=== PATIENT | female | born 1975 | race Caucasian/White ===

== ENCOUNTER 2018-11-03 01:21 | Emergency (ER) | payer MEDICAID, SELFPAY ==
[2018-11-03 01:22] VITALS: BP 140/96; PULSE 74; RESP 15; TEMP 36.4; O2SAT 96; BMI 50.8
--- NOTE | 2018-11-03 01:49 | ED.VIS.GEN ---
History of Present Illness Chief Complaint: Constipation Narrative: Patient is a 43-year-old female who presents with constipation. She has been constipated for about 2 to 3 days. She has been straining to have a bowel movement. She noticed some bright red blood when she was straining per rectum. She complains of abdominal cramping. No nausea or vomiting. Prior abdominal surgical history includes appendectomy and oophorectomy. She is a diabetic. Her mother had her try dicyclomine. She has not tried any laxatives or stool softeners. Past Medical History - Allergies and Home Meds Allergies/Adverse Reactions: Allergies aspirin Allergy (Verified 11/03/18 01:24) Hives Prior records reviewed: No Past Medical History: - - Diabetes, asthma, history of DVT Surgical History: appendectomy Smoking Status: Current every day smoker Review of Systems All systems negative except as indicated General: Denies: Fever Cardiovascular: Denies: Chest pain Respiratory: Denies: Dyspnea Gastrointestinal: Reports: Constipation. Denies: Abdominal pain, Nausea, Vomiting, Diarrhea Physical Exam Vital Signs/Narrative: Vital Signs Temp Pulse Resp BP Pulse Ox 11/03/18 01:22 97.5 F L 74 15 140/96 H 96 Inital Vital Signs reviewed: Yes General: Well nourished, Well developed Head: Normocephalic Eyes: EOMI ENT: Moist mucous membranes Neck: Supple Cardiovascular: Regular rate, Regular rhythm Respiratory: No distress, CTA bilaterally Abdomen: Soft, Nontender, Nondistended, Normal bowel sounds Rectal: Nontender, - - No fecal impaction noted Skin: Normal color Neurological: Alert Psychological: Normal affect Diagnostic/Tx/Re-eval Impressions KUB X-Ray 11/03/18 02:00 IMPRESSION: Negative x-ray examination of the abdomen and pelvis. Electronically Signed: Anthony Rayen, at 2:22 EDT Tel , Service support , 11/03/18 02:00 KUB [Abdomen Single View] [RAD] Stat - Medical Decision Making X-ray as above unremarkable. Patient was prescribed magnesium citrate for constipation. Prior to discharge she let me know that her doctor in [place] called her and said it looks like she may have cancer. She has a history of cervical cancer. Unfortunately the history pertaining her most recent results is very unclear as the patient is a poor informant. She states some tests were done and then they might show some type of cancer. She is unable to tell me what tests were done what type of physician called her or what type of cancer they were concerned about. I explained there is little I can do with this extremely limited information. I advised that she contact the physician who called her to get some more information about what tests were abnormal and what type of specialist she needs to see. I did refer her to establish her primary care here however she is new to the area. ED Disposition - Plan for ED Patient: Disposition: Home or Assisted Living Diagnosis: Constipation Instructions: CONSTIPATION (Adult) Prescriptions: Magnesium Citrate [Citrate Of Magnesia] 300 ml PO X1 #300 ml Prescription Printed Referrals: Faustino Cullen DO [NON CLINICAL AFFILIATE] -
--- NOTE | 2018-11-03 02:00 | RAD_ITS ---
STUDY: X-RAY - ABDOMEN/PELVIS REASON FOR EXAM: Female, 43 years old. Constipation TECHNIQUE: AP KUB COMPARISON: None. FINDINGS: There is an unremarkable bowel gas pattern. There is no demonstrated free abdominal air. The visualized liver, spleen and kidneys are grossly normal in size and morphology. Mild retained stool seen in the ascending colon and sigmoid colon. Normal soft tissue structures. Normal visualized osseous structures. RAD/Abdomen Single View IMPRESSION: Negative x-ray examination of the abdomen and pelvis. Electronically Signed: Anthony Richey, at 2:22 EDT Tel , Service support ,
[2018-11-03 02:46] VITALS: BP 134/90; PULSE 66; RESP 18; O2SAT 99
== END 2018-11-03 02:46 | disposition home or self-care (01) ==
PROVIDERS: Emergency Provider Emergency Medicine
DX: K59.00 Constipation, unspecified (principal); E11.9 Type 2 diabetes mellitus without complications; J45.909 Unspecified asthma, uncomplicated; Z86.718 Personal history of other venous thrombosis and embolism; F17.200 Nicotine dependence, unspecified, uncomplicated
CPT/HCPCS: 74018; 99282

== ENCOUNTER 2019-03-03 23:17 | Emergency (ER) | payer MEDICAID, SELFPAY ==
[2019-03-03 23:18] VITALS: BP 159/85; PULSE 80; RESP 16; TEMP 37.1; O2SAT 98; BMI 47.2
[2019-03-04 00:24] LABS: Mucous, Urine 0 SEEN /hpf (<or=2+); Red Blood Cells-Urine 0 SEEN /hpf (0-5)
[2019-03-04 00:26] LABS: Color, Urine Yellow (Yellow); Glucose, Dipstick 250 mg/dl (Normal); Ketone-Dipstick 5 mg/dl (Negative); Leukocyte Esterase-Dipstick 100 /ul (Negative); Nitrite-Dipstick Positive (Negative); Occult Blood-Urine 10 /ul (Negative); Protein-Dipstick 30 mg/dl (Negative); Urine Bilirubin Dipstick Negative (Negative); Urine Clarity Sl. Cloudy (Clear); Urine Urobilinogen Normal (Normal)
[2019-03-04 00:29] LABS: Internal QC Validated? YES +Cl - CLEAR BKGD; Pregnancy, Urine Negative Negative
[2019-03-04] MEDS: Azithromycin 250 MG Tablet 1000 MG PO (00:37)
[2019-03-04] MEDS: Ceftriaxone 500 MG Vial 250 MG IM (00:37)
[2019-03-04 00:45] LABS: Bacteria 2+ /hpf (None Seen); Squamous Epithelial Cells - UA 5-10 SEEN /hpf (5-10); White Blood Cells 10-25 SEEN /hpf (0-5)
--- NOTE | 2019-03-04 01:04 | ED.DCSUM_ITS ---
History of Present Illness Chief Complaint: Female C/O Informant: Patient Narrative: Patient is a 43-year-old female presenting for concern for sexually transmitted infection. Patient states another woman slept with her and then her immediately afterward slept with her. She is concerned because she heard that this woman has herpes as well as chlamydia. Patient denies any abnormal vaginal discharge or painful lesions in her vagina/perineum. Her last menstrual period was 3 weeks ago. Patient states she recently had a miscarriage 3 weeks ago. She is following up with her [employer] and is scheduled to have an ultrasound next week. Patient is not concerned for this. Patient denies any personal history of STDs. She states she would like to be treated. She denies any other complaints at this time. Past Medical History - Allergies and Home Meds Allergies/Adverse Reactions: Allergies aspirin Allergy (Verified 03/03/19 23:25) Hives Primary Care Physician: Margaret Harkins CNM [Primary Care Provider] - Past Medical History: None Surgical History: appendectomy Smoking Status: Current some day smoker Review of Systems General: Denies: Chills, Fever, Sweats Eyes: Denies: Visual changes - bilaterally, Diplopia ENT: Denies: Rhinorrhea, Sore throat Cardiovascular: Denies: Chest pain, Palpitations Respiratory: Denies: Dyspnea, Cough, Dyspnea on exertion Gastrointestinal: Denies: Abdominal pain, Nausea, Vomiting, Diarrhea, Melena, Hematochezia Genitourinary: Denies: Dysuria, Hematuria, Frequency Musculoskeletal: Denies: Back pain, Extremity Pain Skin: Denies: Rash, Wounds Neurological: Denies: Headache, Weakness, Numbness Physical Exam Vital Signs/Narrative: Vital Signs Temp Pulse Resp BP Pulse Ox 03/03/19 23:18 98.7 F 80 16 159/85 H 98 Inital Vital Signs reviewed: Yes General: Well nourished, Well developed, Obese, No Acute Distress Head: Normocephalic, Atraumatic Eyes: Perrl, EOMI ENT: Moist mucous membranes, No rhinorrhea Neck: Supple, Nontender Cardiovascular: Regular rate, Regular rhythm, No murmurs Respiratory: No distress, CTA bilaterally, Chest nontender Abdomen: Soft, Nontender, Nondistended, Normal bowel sounds : - - deferred Back: Nontender, Normal Inspection. Negative for: CVA tenderness Extremities: Nontender, No edema Skin: Normal color, No rash Neurological: Alert, Oriented x3, Cranial nerves II-XII grossly intact, Normal Strength, Normal Sensation Psychological: Normal affect, Normal Mood, - - Patient is alone she does admit that she feels safe at home and is here on her own volition. Diagnostic/Tx/Re-eval - Medical Decision Making Patient is evaluated for concern of STD exposure. Patient actually arrived with the other woman who apparently was also having sex with her . Patient is spoken to without anyone else in the room and she states that she feels safe at home and she is not having any sexual intercourse against her will. Patient also has a convoluted story about having a recent miscarriage. She is not having any vaginal symptom such as abnormal discharge or bleeding. She not have any pelvic pain. Urine test is negative. Patient states she has follow-up with her [employer]. I feel like this is sufficient. Patient is counseled that as she does not have any pain or sores I cannot test her for herpes at this time. She is given information on genital herpes however because of potential exposure. Patient is treated empirically for gonorrhea and chlamydia. Urinalysis does show nitrates and 100 leukoesterase. Patient is placed on a short course of Keflex. She does have glucose in her urine however this is consistent with her history of diabetes. Patient is counseled on signs and symptoms requiring return to the emergency room. Patient verbalizes agreement and understand this plan. Patient discharged home in stable and improved condition. ED Disposition - Plan for ED Patient: Disposition: Home or Assisted Living Diagnosis: UTI (urinary tract infection), STD exposure Instructions: Herpes, CERVICITIS (STD), Treated, Bladder Infection, Female (Adult) Prescriptions: Cephalexin [Keflex] 500 mg PO BID #6 cap Prescription Printed Referrals: Margaret Harkins CNM [Primary Care Provider] - Additional Instructions: While you do not have symptoms you were treated just in case for sexually transmitted infection, gonorrhea and chlamydia. The test results will take a few hours to come back. You do not have any lesions/sores or pain so I cannot test you for herpes at this time. Please follow-up with your [employer]. Your urine did show findings consistent with a UTI. You have been put on a 3-day course of antibiotics for this.
[2019-03-04 02:00] LABS: Chlamydia Trachomatis by PCR Negative (Negative); Neisserai gonorrhoeae by PCR Negative (Negative); Probe Check PASS; Sample Adequacy Control PASS; Specimen Processing Control PASS
== END 2019-03-04 01:19 | disposition home or self-care (01) ==
PROVIDERS: Emergency Provider Emergency Medicine; PCP Advanced Practice Midwife
DX: N39.0 Urinary tract infection, site not specified (principal); Z20.2 Contact with and (suspected) exposure to infections with a predominantly sexual mode of transmission; E66.9 Obesity, unspecified; E11.9 Type 2 diabetes mellitus without complications; F17.200 Nicotine dependence, unspecified, uncomplicated
CPT/HCPCS: 81001; 81025; 87491; 87591; 96372; 99283